=== PATIENT | female | born 1990 | race Caucasian/White ===

== ENCOUNTER 2025-08-20 08:45 | Emergency (ER) | payer OTHER, SELFPAY ==
[2025-08-20 08:51] VITALS: BP 111/74; PULSE 79; RESP 15; TEMP 36.4; O2SAT 99
--- OUTSIDE RECORDS SUMMARY | 2025-08-20 08:56 | XMS_ITS | Patient Health Record ---
Author Organization [facility] [employer] Address [address] [facility] [address] [place] [address] Care Team Providers Care Try Out Person Name Role Phone Fadumo Cruz Unavailable [phone] Reason For Referral No Information Plan Of Treatment No Information
[2025-08-20 09:19] LABS: Hematocrit 38.0 % (37.0-47.0); Hemoglobin 12.5 g/dL (12.0-15.0); Immature Granulocyte Percent A 0.2 % (0-0.5); Lymphocytes Absolute Auto 2.27 K/mm3 (0.9-3.2); Mean Corpuscular HGB Conc 32.9 g/dl (32-36); Mean Corpuscular Hemoglobin 30.5 pg (26-34); Mean Corpuscular Volume 92.7 fl (80-100); Nucleated Red Blood Cells Absolute Auto 0.000 K/mm3 (0.0-0.012); Nucleated Red Blood Cells Perc 0.0 % (0.0-0.2); Platelet Count Result 418 k/mm3 (150-375); Red Blood Count 4.10 M/mm3 (4.2-5.4); White Blood Count 9.9 K/mm3 (4.5-10.0)
[2025-08-20 09:19] LABS: Add Urine Microscopic? NO; Appearance Urine Clear (Clear); Glucose Urine UA Negative (Negative); Leukocyte Esterase Ur Negative LEU/UL (Negative); Nitrate Urine Negative (Negative); Specific Grav Ur 1.029 (1.001-1.035)
--- NOTE | 2025-08-20 09:24 | ED_ITS ---
HPI - General Adult General Chief complaint: Abdominal Pain Stated complaint: UPPER ABD PAIN Time Seen by Provider: 08/20/25 08:47 History of Present Illness HPI narrative: 35-year-old female presents to the emergency department for evaluation for multiple days of upset stomach and recently developed epigastric pain. Patient began developing epigastric pain yesterday at work and then and had intermittently overnight. Patient denies any prior history of gastritis. Patient has not been taking ibuprofen. Patient denies any history of gallbladder disease. Patient denies any prior history of pancreatitis. Patient was looking up symptoms and [employer] and patient became concerned that perhaps this was more than just a stomach bug. Patient is resting comfortably at time of evaluation. Related Data Allergies Allergy/AdvReac Type Severity Reaction Status Date / Time No Known Drug Allergies Allergy Unknown Verified 04/27/17 13:33 Review of Systems 2 Review of Systems: All systems reviewed & are unremarkable except as noted in HPI and below PMFSH Social History Social History Smoking status: Heavy tobacco smoker Alcohol intake: current Exam 2 Narrative: APPEARANCE: Well appearing, no pain, no distress, well-nourished. HEAD: normocephalic, atraumatic. EYES: PERRLA/EOMI, conjunctivae clear. NOSE: Normal no drainage EARS:TMS clear with good light reflex. THROAT: Pharynx clear, no exudate. NECK: Supple. No adenopathy, no masses. RESPIRATORY: Airway patent, respirations nonlabored. Clear to auscultation bilaterally, no rales, rhonchi, wheezing. CARDIOVASCULAR: Regular rate and rhythm without murmurs rubs or gallops. ABDOMINAL: Epigastric tenderness to palpation MUSCULOSKELETAL: Moves all extremities. Strength/ROM intact, No edema, No calf tenderness. NEURO: Alert. Cranial nerves II through XII intact. Grossly intact SKIN: Warm, dry. Normal Color Course Vital Signs Vital signs: Vital Signs Temperature 97.5 F L 08/20/25 08:51 Pulse Rate 79 08/20/25 08:51 Respiratory Rate 15 08/20/25 08:51 Blood Pressure 111/74 08/20/25 08:51 Pulse Oximetry 99 08/20/25 08:51 Oxygen Delivery Room Air 08/20/25 08:51 Temperature 97.5 F L 08/20/25 11:08 Pulse Rate 64 08/20/25 11:08 Respiratory Rate 17 08/20/25 11:08 Blood Pressure 104/72 08/20/25 11:08 Pulse Oximetry 98 08/20/25 11:08 Oxygen Delivery Room Air 08/20/25 08:51 Medical Decision Making MDM Narrative Medical decision making narrative: 35-year-old female present to the emergency department for evaluation for epigastric abdominal pain. Patient is afebrile no leukocytosis hemoglobin of 12.5. Patient was treated with IV fluids, IV Protonix and GI cocktail. Patient has no acute abnormalities on her CMP normal T bili AST ALT alk-phos. Lipase within normal limits. UA shows no evidence of infection. On re-evaluation patient states pain is resolved. Patient was updated results of her workup. I do suspect patient has a esophagitis/gastritis. Patient was updated on the plan for treatment home and the importance of close follow-up with GI. All questions concerns were addressed. Differential Diagnosis Differential Diagnosis: Pneumonia, pneumothorax, pulmonary embolism, ACS, gastritis, esophagitis Vital Signs Vital Signs: Vital Signs Temperature 97.5 F L 08/20/25 08:51 Pulse Rate 79 08/20/25 08:51 Respiratory Rate 15 08/20/25 08:51 Blood Pressure 111/74 08/20/25 08:51 Pulse Oximetry 99 08/20/25 08:51 Oxygen Delivery Room Air 08/20/25 08:51 Temperature 97.5 F L 08/20/25 11:08 Pulse Rate 64 08/20/25 11:08 Respiratory Rate 17 08/20/25 11:08 Blood Pressure 104/72 08/20/25 11:08 Pulse Oximetry 98 08/20/25 11:08 Oxygen Delivery Room Air 08/20/25 08:51 Lab Data Lab results reviewed: Yes I reviewed the patient's lab results. 08/20/25 09:07 08/20/25 09:07 Labs: Lab Results 08/20/25 08/20/25 Range/Units 09:07 09:11 WBC 9.9 (4.5-10.0) K/mm3 RBC 4.10 L (4.2-5.4) M/mm3 Hgb 12.5 (12.0-15.0) g/dL Hct 38.0 (37.0-47.0) % MCV 92.7 (80-100) fl MCH 30.5 (26-34) pg MCHC 32.9 (32-36) g/dl RDW 13.0 (11.5-14.5) % Plt Count 418 H (150-375) k/mm3 MPV 8.9 (7.4-10.4) fl Immature Gran % (Auto) 0.2 (0-0.5) % Neut % (Auto) 69.1 (45.5-73.1) % Lymph % (Auto) 23.0 (18.3-44.2) % [place] % (Auto) 7.2 (2.6-8.5) % Eos % (Auto) 0.2 (0-4.4) % Baso % (Auto) 0.3 (0.2-1.2) % Lymph # (Auto) 2.27 (0.9-3.2) K/mm3 [place] # (Auto) 0.7 H (0.1-0.6) K/mm3 Eos # (Auto) 0.0 (0-0.3) K/mm3 Baso # (Auto) 0.0 (0.0-0.1) K/mm3 Abs Immat Gran (auto) 0.02 (0.00-0.031) K/mm3 Absolute Neuts (auto) 6.8 H (1.3-6.7) K/mm3 Absolute Nucleated RBC 0.000 (0.0-0.012) K/mm3 Nucleated RBC % 0.0 (0.0-0.2) % Sodium 140 (137-145) mmol/L Potassium 3.8 (3.4-5.0) mmol/L Chloride 107 (98-107) mmol/L Carbon Dioxide 25 (22-30) mmol/L Anion Gap 8 (4-12) mmol/L BUN 11 (7-17) mg/dL Creatinine 0.75 (0.7-1.0) mg/dL Estim Creat Clear Calc 74 ml/min Estimated GFR > 60 (59 - ) Glucose 95 (65-110) mg/dL Calcium 9.3 (8.4-10.2) mg/dL Total Bilirubin 0.5 (0.2-1.3) mg/dL AST 21 (14-36) U/L ALT 14 (6-35) U/L Alkaline Phosphatase 60 (38-126) U/L Total Protein 7.4 (6.3-8.2) g/dL Albumin 4.4 (3.5-5.1) g/dL Lipase 33 (23-300) U/L Urine Color Yellow (Yellow) Urine Appearance Clear (Clear) Urine pH 5.5 (5.0-9.0) Ur Specific [place] 1.029 (1.001-1.035) Urine Protein Negative (Negative) mg/dL Urine Glucose (UA) Negative (Negative) mg/dL Urine Ketones Trace H (Negative) mg/dL Ur Blood (Man) Negative (Negative) Urine Nitrate Negative (Negative) Urine Bilirubin Negative (Negative) Urine Urobilinogen 1.0 (<2.0) mg/dL Leukocyte Esterase Rfl Negative (Negative) KENZIE/UL Discharge Plan Discharge Clinical Impression: Abdominal pain, epigastric Patient Disposition: Home Condition: Stable Instructions: Antibiotic Form, Gastritis (DC), Diet for Stomach Ulcers and Gastritis (ED) Additional Instructions: Follow a clear liquid diet for the next 1-3 days. Zofran as needed for nausea control. Omeprazole as directed for the next 14 days. Advance to bland diet as tolerated. Avoid NSAIDs and avoid alcohol. Have close follow-up with your primary care physician as outpatient. Have close follow-up with GI as outpatient. If you have any worsening symptoms then please call or return to the emergency department. Patient Language: Samoan Prescriptions: New omeprazole 20 mg capsule,delayed release(DR/EC) 20 mg PO DAILY 14 Days Qty: 14 0RF ondansetron 4 mg tablet,disintegrating 4 mg PO Q8H PRN (Reason: nausea and vomiting) Qty: 14 0RF Follow-up/Referrals: Charanjit Johnson MD [Primary Care Provider, Family Practice] Chencho Moreno MD [Physician, Gastroenterology]
[2025-08-20 09:40] LABS: Alanine Aminotransferase 14 U/L (6-35); Albumin Level 4.4 g/dL (3.5-5.1); Alkaline Phosphatase 60 U/L (38-126); Anion Gap 8 mmol/L (4-12); Aspartate Amino Transferase 21 U/L (14-36); Bilirubin,Total 0.5 mg/dL (0.2-1.3); Blood Urea Nitrogen 11 mg/dL (7-17); Calcium 9.3 mg/dL (8.4-10.2); Carbon Dioxide 25 mmol/L (22-30); Chloride 107 mmol/L (98-107); Estimated CRCL calculation 74 ml/min; Estimated Glomerular Filt Rate > 60; Glucose 95 mg/dL (65-110); Lipase 33 U/L (23-300); Potassium 3.8 mmol/L (3.4-5.0); Sodium 140 mmol/L (137-145); Total Protein 7.4 g/dL (6.3-8.2)
[2025-08-20] MEDS: PANTOPRAZOLE SODIUM IV 40 MG VIAL IV PUSH (09:53)
[2025-08-20] MEDS: BELLADONNA ALK/PHENOB ELIX 10 ML, MAG HYDROX/ALUMINUM HYD/SIMETH 30 ML, LIDOCAINE 2% VI... PO (09:55)
[2025-08-20] MEDS: LACTATED RINGERS 1,000 ML 999 ML IV CONT ×2 (09:58)
[2025-08-20 09:59] VITALS: BP 106/67; PULSE 66; RESP 15; O2SAT 99
[2025-08-20 11:08] VITALS: BP 104/72; PULSE 64; RESP 17; TEMP 36.4; O2SAT 98
== END 2025-08-20 11:10 | disposition home or self-care (01) ==
PROVIDERS: Emergency Provider Emergency Medicine; PCP Family Medicine
DX: R10.13 Epigastric pain (principal)
CPT/HCPCS: 36415; 80053; 81003; 83690; 85025; 96361; 96374; 99284; A9270; J2470; J7120